=== PATIENT | female | born 1995 | race Caucasian/White ===

== ENCOUNTER 2020-09-03 20:20 | Inpatient (IN) | payer OTHER ==
[~2020-09-03] VITALS: Ht 162.6 cm; Wt 93.4 kg
[2020-09-03 22:52] LABS: HEMOGLOBIN 12.4 gm/dl (12.3-15.3); RED BLOOD COUNT 4.03 M/UL (4.00-5.10); WHITE BLOOD COUNT 21.5 K/UL (4.5-11.0)
[2020-09-03] MEDS ORDERED: IBUPROFEN800 MG PO (23:33)
[2020-09-03] MEDS ORDERED: COLACE100 MG PO (23:33)
[2020-09-04 06:19] LABS: HEMOGLOBIN 12.7 gm/dl (12.3-15.3)
== END 2020-09-05 15:15 | disposition home or self-care (01) | DRG 807 ==
LOC: GENOP 20:20 → OB 22:00
PROVIDERS: ADMIT Obstetrics & Gynecology
PROC: 4A1HX4Z Monitoring of Products of Conception, Cardiac Electrical Activity, External Approach (ICD-10-PCS; principal; 2020-09-03)
PROC: 10E0XZZ Delivery of Products of Conception, External Approach (ICD-10-PCS; 2020-09-03)
DX: O62.3 Precipitate labor (principal); Z37.0 Single live birth; Z3A.39 39 weeks gestation of pregnancy; O71.82 Other specified trauma to perineum and vulva; Z20.822 Contact with and (suspected) exposure to COVID-19
CPT/HCPCS: 36415; 81001; 85014; 85018; 85025; 85461; 86850; 86900; 86901; 90471; 90715; J1885; J2210; J2590; U0002